=== PATIENT | female | born 1980 | race Hispanic/Latino ===

== ENCOUNTER 2017-12-15 09:45 | Day surgery (SDC) | payer OTHER ==
[2017-12-15] MEDS ORDERED: Ondansetron ODT 4 MG TAB ONE (09:59)
[2017-12-15] MEDS ORDERED: Morphine 4 MG/ML VIAL ONE ×2 (10:16→14:09)
[2017-12-15 10:25] LABS: #Basophils 0.1 thou/uL (0.0-0.2); #Eosinphils 0.1 thou/uL (0.0-0.7); #Lymphocytes 1.7 thou/uL (1.20-3.40); #Monocytes 0.7 thou/uL (0.11-0.59); #Neutrophils 4.4 thou/uL (1.40-6.50); %Basophils 0.8 % (0.0-1.0); %Eosinophils 1.9 % (0.0-10.0); %Lymphocytes 23.9 % (21.0-51.0); %Monocytes 9.8 % (0.0-10.0); %Neutrophils 63.5 % (42.0-75.0); Mean Corpuscular HGB CONC 33.5 g/dL (32.0-36.0); Mean Corpuscular Volume 86.4 fl (81.0-99.0); Mean Platelet Volume 6.6 fL (7.4-10.4); Platelet Count 266 thou/uL (130-400); RBC Distribution Width 12.6 % (11.5-14.5); Red Blood Cell (RBC) Count 4.84 mill/uL (4.20-5.40); White Blood Cell (WBC) Count 6.9 thou/uL (4.8-10.8)
[2017-12-15 10:42] LABS: ALT (SGPT) 17 U/L (8-55); AST (SGOT) 15 U/L (5-34); Albumin 4.6 g/dL (3.5-5.0); Alkaline Phosphatase 50 U/L (40-150); Anion Gap 10 mmol/L (10-20); BUN (Urea Nitrogen) 9 mg/dL (7.0-18.7); Bilirubin, Total 0.7 mg/dL (0.2-1.2); Calc. Creatinine Clearance 0 mL/min (70-130); Calcium 9.9 mg/dL (7.8-10.44); Carbon Dioxide 26 mmol/L (22-29); Chloride 103 mmol/L (98-107); Estimated GFR-MDRD 70; Globulin 3.7 g/dL (2.4-3.5); Glucose 97 mg/dL (70-105); Lipase 17 U/L (8-78); Potassium 3.9 mmol/L (3.5-5.1); Protein, Total 8.3 g/dL (6.0-8.3); Sodium 135 mmol/L (136-145)
[2017-12-15 10:53] LABS: Bilirubin Negative (Negative); Blood, Urine Negative (Negative); Clarity CLEAR (Clear); Glucose, Urine (Dipstick) Negative (Negative); Leukocyte Negative (Negative); Nitrite Negative (Negative); Protein, Urine (Dipstick) Negative (Neg-Trace); Specific Gravity, Urine 1.024 (1.002-1.036); Urobilinogen 0.2 mg/dL (0.2-1.0)
[2017-12-15 10:54] LABS: Pregnancy Test - Urine (BHCG) Negative (Negative); Pregu Control Background? CLEAR/WHITE (CLR/WHITE); Pregu Control Bar Appear? YES (CONTROL BAR); Specific Gravity 1.024 (1.002-1.036)
[2017-12-15] MEDS ORDERED: Lidocaine 1% PF 5 ML VIAL ONE (11:01)
[2017-12-15] MEDS ORDERED: Ondansetron HCl/PF 4 MG/2 ML Vial ONE (11:01)
[2017-12-15] MEDS ORDERED: Glycopyrrolate 0.2 MG/ML 5 ML SYRINGE ONE (11:01)
[2017-12-15] MEDS ORDERED: PROPOFOL 200 MG/20 ML VIAL ONE (11:01)
[2017-12-15] MEDS ORDERED: Dexamethasone 20 MG/5 ML VIAL ONE (11:01)
[2017-12-15] MEDS ORDERED: ISOVUE-370 76%-LOCM 1 ML ONE (13:25)
--- NOTE | 2017-12-15 15:20 | CT ---
CT ABDOMEN AND PELVIS WITH IV CONTRAST: DATE: 12/15/17. History Left-sided abdominal pain which started last night and has been constant and is gradually getting wor se. The patient reports nausea and vomiting. COMPARISON: None available. FINDINGS: Lung bases are clear. The liver, spleen, pancreas, bilateral adrenal glands, kidneys, and abdominal aorta demonstrate a nor mal CT appearance. There is a complex cystic mass seen within the pelvis which does contain a small focus of fat. This mass does result in mass effect on the urinary bladder. This large mass measures 9.1 cm craniocauda l x 8.4 cm transverse x 6.9 cm AP. Again, there is also a suggestion of septations within this cysti c mass which also contain small focus of fat. This mass does abut the left ovary. The right ovary i s not visualized. The exact origin of this mass is difficult to determine, but is likely ovarian in origin. There is a small amount of free fluid seen in the lower pelvis as well as in the more inferior aspect of the right paracolic gutter. The uterus is heterogeneous in appearance with a suggestion of fluid in the endometrium. Prominent hypodense cystic lesions are seen in the cervix probably related to nabothian cysts. The cecum extends superiorly and medially within the abdomen and the appendix is seen within the mid abdomen which is normal in caliber. IMPRESSION: 1. Multiloculated cystic pelvic mass which contains a small amount of fat. This is likely ovarian i n origin, and the complex cystic mass does abut the left ovary. While this is thought to be ovarian in origin, the exact origin is difficult to determine on this exam. INFANTRY INDIRECT [employer] consultation is recommend ed for further evaluation. 2. Small amount of free fluid in the pelvis. 3. Prominent nabothian cysts with a small amount of fluid in the endometrial canal. 4. A small amount of free fluid in the pelvis. POS: [facility]
--- NOTE | 2017-12-15 15:48 | ULT ---
TRANSABDOMINAL AND TRANSVAGINAL PELVIC ULTRASOUND 12/15/17 INDICATION: Ovarian mass, concern for torsion. TECHNIQUE: Pacheco scale, color doppler, with spectral doppler images were obtained of the pelvis via transabdomina l and transvaginal approach. COMPARISON: CT of the abdomen and pelvis with contrast dated 12/15/17. FINDINGS: The uterus measures 10 x 5.0 x 6.3 cm. Endometrial stripe measures 1.2 mm. There is a complex cystic mass with areas of septated echogenicity suspicious for fat. This is suspic ious for a dermoid cyst. The left ovary is likely due to the origin of this ovarian lesion and appear s to be best seen on image 103 of 129 measuring approximately 3.3 x 2.7 cm. There is normal vascular flow to the left ovary. There is a mild to moderate amount of mildly complex fluid seen within the l eft ovary. The right ovary is not visualized on this pelvic ultrasound examination but in retrospect review of the CT is likely present on image 60 of series 2 and does appear to enhance. IMPRESSION: 1. Larger complex cystic mass of the left adnexa with components of fat most consistent with a d ermoid cyst. The left ovary does appear to be the site of origin of this lesion. There is normal flow to the left ovary. 2. Right ovary is not seen by ultrasound but in retrospective review with prior CT examination, the right ovary is best seen on image 60 of series 2 and does appear to enhance. Does not appear appr eciably enlarged. 3. Mild to moderate nonspecific mildly complex free fluid in the pelvis. POS: [facility]
--- NOTE | 2017-12-15 16:31 | HP ---
DATE OF SERVICE: 12/15/2017 CHIEF COMPLAINT: Pelvic pain. HISTORY OF PRESENT ILLNESS: The patient is a 37-year-old G2, P2 female who presented to the emergenc y room with 1 day history of progressive constant pelvic pain. The patient reports that began yester day about 5:30 in the afternoon on the way driving home from [place]. She reports that the pain is constant and is severe with intermittent, sharp stabbing pains. During her workup in the emergenc y room, the patient was noted to have a 9 cm adnexal mass anterior to the uterus and complex in natur e. The patient reports she has a history of 2 previous C-sections and was told that her second C-sec tion that she had a lot of adhesions. The patient denies fever, chest pain, shortness of breath. Tera valente reports constipation. Denies diarrhea. Denies fever. The patient reports that her last menst rual period was about 3 weeks ago. PAST MEDICAL HISTORY: Irritable bowel syndrome. PAST SURGICAL HISTORY: She has had 2 previous C-sections and she has had her tonsils removed. ALLERGIES: ASPIRIN, IBUPROFEN and PENICILLIN. SOCIAL HISTORY: Denies alcohol or drug use or tobacco use. REVIEW OF SYSTEMS: Per HPI. PHYSICAL EXAMINATION: VITAL SIGNS: Blood pressure 104/66, pulse of 82, respiratory rate 19, temperature 98.3. GENERAL: She appears to be in no acute distress after receiving 8 mg of morphine IV. She is alert a nd oriented, cooperative and pleasant to interact with. HEAD: Normocephalic, atraumatic. LUNGS: Clear to auscultation bilaterally. HEART: Has a regular rate and rhythm. ABDOMEN: Tender to palpation in the left lower abdomen. EXTREMITIES: Nontender, nonedematous. LABORATORY DATA AND IMAGING: Hemoglobin 11.1, hematocrit 33.7, platelets 195,000. White count of 10 .6. Blood type A positive. CT scan shows multiloculated cystic mass with a small amount of fat seen within the pelvis and with a small amount of free fluid in the pelvis. Ultrasound report is pending . ASSESSMENT AND PLAN: The patient is a 37-year-old female with a 9 cm adnexal mass with acute onset a bdominal pain. Risks include torsion of the ovary, rupture of a dermoid tumor or cystadenoma and mal ignancy. The risk of malignancy is very low at this point. I have discussed with the patient the op tions of expectant versus surgical management and waiting on a CA-125 prior to surgery or proceeding. I discussed that surgery would give us the quickest way to answer if there is torsion or not, which potentially kill off that left ovary and create other complications. I also discussed the chance of requiring laparotomy given her history of pelvic adhesions from prior C-sections that we discussed t he risks of bleeding, infection, damage to bowel or bladder, or other blood vessels. She does report she done having children, likely procedure is a diagnostic laparoscopy with removal of the left adne xa, possible laparotomy. Patient has expressed understanding and desires to proceed. She has declin ed waiting on the CA-125 before proceeding and using medication for control of pain. The patient und erstands there is a small risk of this being a malignancy, though less likely. The patient has given the opportunity to ask any questions and has provided informed consent.
--- NOTE | 2017-12-16 00:25 | OP ---
DATE OF ENCOUNTER: 12/15/2017 PREOPERATIVE DIAGNOSES: 1. Acute pelvic pain. 2. Adnexal mass. 3. Suspected ovarian torsion. POSTOPERATIVE DIAGNOSES: 1. Acute pelvic pain. 2. Adnexal mass. 3. Suspected ovarian torsion. PROCEDURES PERFORMED: Diagnostic laparoscopy with left oophorectomy. SPECIMENS REMOVED: Left ovary. ANESTHESIA: General. SURGEON: Dr. Andrea Kidd. ESTIMATED BLOOD LOSS: Less than 10 mL. COMPLICATIONS: None. COUNTS: Correct. FINDINGS: Left ovary filling the anterior pelvis. mucinous fluid in part of ovary and appeared to be torsed x1. The ovary did not appear to have any significant visible changes other than size. The patient appeared to have a large uterus and a normal appearing right ovary and tube. There were adhesions of the omentum to the anterior abdominal wall to the posterior uterus and to the left side wall. DESCRIPTION OF PROCEDURE: The patient after being counseling given providing informed consent, she was taken to the operating room and placed in dorsal lithotomy position in [facility] after undergoing general anesthesia without complication. The patient was prepared and draped in normal sterile fashion. Attention was placed vaginally where a uterine manipulator was placed and reinforced with a single tooth tenaculum. Attention was placed abdominally. A 5-mm port and trocar were introduced abdominally and confirmation was made by laparoscope. The abdomen was then insufflated to 15 mmHg. Immediately visible was a large ovarian mass taking up most of the pelvic space measuring about [address] The omentum was adhesed, tacked up an anterior abdominal wall and left sidewall and posterior uterus making visibility a little difficult. We did perform surgery looking for the pockets provided around the adhesions. There did not appear to be any significant adhesive disease between the ovary, uterus, or pelvis. A second 11-mm port with trocar was then inserted through a skin incision in the midline suprapubic region through an existing scar. This was done under direct visualization. A third 5-mm incision was made in the left lateral aspect of the abdomen. A 5-mm port with some difficulty. Visualization was made with care to watch the tip come through into a clear field. The ovary was examined and appeared to have twisted in its way of coming from the posterior aspect of the uterus over to the anterior aspect of the uterus one time likely giving rise to the patient's pain, suspect was an intermittent ovarian torsion as the ovary did not appear to be dusky or having significant ischemia. Given the size of the ovary after evaluation, it was deemed that easiest way to proceed was removal. The pedicle was easily visible on the left side with some manipulation of the ovary with careful evaluation through several ports. The pedicle appeared to be free and clear of the sidewall and of the colon. A LigaSure device was then used to carefully ligate the ovarian vein and artery in several places and then transected it most proximal to the ovary itself. Care was done to do this with visualization; once it was transected, the ovary appeared to be completely free of the pelvis. At this point, because of the size, it is difficult to move and manipulate. A decision was made to puncture the ovary and sucked the fluid from the middle of the largest part. This fluid care was made not to introduce the fluid into the abdomen. A 60 mL syringe on this laparoscopic needle was used. A thick mucinous material was removed about 40 mL, which was sent for cytology and evaluation. With laparoscopic scissors, an incision was made through the puncture site until a suction catheter could be introduced and finish removing fluid from the main cystic structure. At this point in time, a laparoscopic catch bag was then introduced through the suprapubic port and the ovary was introduced into the port and closed. The bag was then pulled through the suprapubic site, opening the bag exteriorly, with some difficulty the ovary was then removed through that bag with care, not to introduce any more contents into the abdominal cavity. Once this was completed , the port and trocar were then reintroduced suprapubically and the pelvis was thoroughly irrigated. Good hemostasis was noted from the left pedicle. There was some difficulty getting into the posterior cul-de-sac given the size of the uterus and the adhesions from the omentum. The right ovary and tube appeared to be normal. The left tube appeared normal. Decision was made to leave the tube given its appearance and desire to minimize any further risk to the patient. After thorough irrigation and the ports were then removed, leaving the omental adhesions in place and the suprapubic fascia was then closed with 0 Vicryl and a UR-6 with a [id number], and the skin was closed with 4-0 Monocryl in a running fashion in all 3 ports, 0.5% Marcaine with epinephrine was then introduced approximately 20 mL into these 3 incisions. Attention was then placed vaginally once again and the uterine manipulator and tenaculum were removed. The cervix was directly visualized with the aid of an open-sided speculum and saw to be hemostatic. The patient then was taken out of lithotomy position, extubated, and taken to recovery room in stable condition where plans are for her to be discharged once properly recovered. EVARISTO
== END 2017-12-15 19:45 | disposition home or self-care (01) ==
LOC: ERS 09:45
PROVIDERS: ATTEND Obstetrics & Gynecology
PROC: 0UT14ZZ Resection of Left Ovary, Percutaneous Endoscopic Approach (ICD-10-PCS; principal; 2017-12-15)
DX: D27.1 Benign neoplasm of left ovary (principal); K58.9 Irritable bowel syndrome, unspecified; Z88.0 Allergy status to penicillin; Z88.6 Allergy status to analgesic agent; Z88.8 Allergy status to other drugs, medicaments and biological substances
CPT/HCPCS: 74177; 76856; 80053; 81003; 81025; 83690; 85025; 88112; 88307; 96361; 96374; 96376; J1100; J2001; J2270; J2405; J2704; Q0162